=== PATIENT | female | born 1960 | race American Indian/Alaskan Native ===

== ENCOUNTER 2023-05-05 12:24 | Inpatient (IN) ==
[2023-05-05] MEDS ORDERED: fentaNYL 100 MCG/2 ML VIAL IV ONE ×2 (13:02→17:04)
[2023-05-05] MEDS ORDERED: KETAMINE 10 MG/ML ML IV ONE (13:27)
[2023-05-05] MEDS ORDERED: ONDANSETRON 4 MG/2 ML VIAL IV ONE (13:27)
[2023-05-05 13:50] LABS: Basophils # (Auto) 0.06 K/mcL (0.00-0.30); Basophils % (Auto) 0.9 % (0.0-2.0); Eosinophils % (Auto) 2.8 % (0.0-7.0); Hematocrit 39.7 % (34.1-44.9); Lymphocytes # (Auto) 1.99 K/mcL (1.50-4.80); Lymphocytes % (Auto) 28.3 % (15.5-49.0); Mean Cell Volume 88.6 fL (80.0-100.0); Mean Corpuscular HGB Conc 32.7 g/dL (31.0-36.0); Mean Platelet Volume 11.7 fL (8.8-12.5); Monocytes % (Auto) 7.1 % (1.0-12.0); Neutrophils % (Auto) 59.8 % (38.0-78.0); Platelet Count 266 K/mcL (140-440); RBC 4.48 M/mcL (3.59-5.38); Red Cell Distribution Width 13.7 % (11.5-14.5)
[2023-05-05 14:08] LABS: ALT/SGPT 59 U/L (<40); AST/SGOT 55 U/L (<32); Albumin 4.3 gm/dL (3.2-5.2); Albumin/Globulin Ratio 1.7 (1.0-2.3); Alkaline Phosphatase 74 U/L (39-117); Bilirubin,Total 0.3 mg/dL (0.1-1.0); Blood Urea Nitrogen 13 mg/dL (8-23); Calcium 9.5 mg/dL (8.6-10.4); Carbon Dioxide 20 mmol/L (22-30); Chloride 101 mmol/L (96-108); Globulin 2.5 gm/dL (2.2-3.7); Glomerular Filtration Rate 53; Glucose 371 mg/dL (70-105)
[2023-05-05 14:30] LABS: Prothrombin Time 13.4 sec (11.9-14.5)
[2023-05-05] MEDS ORDERED: ACETAMINOPHEN 1,000 MG/100 ML BAG IV ONE (15:04)
[2023-05-05] MEDS ORDERED: oxyCODONE IR 5 MG TABLET PO ONE ×2 (15:04→19:19)
[2023-05-05] MEDS ORDERED: CYCLOBENZAPRINE 10 MG TABLET PO ONE (15:51)
[2023-05-05 16:14] LABS: Appearance,Urine Clear (Clear); Bacteria,Urine Few /hpf (0); Bilirubin,Urine Negative (Negative); Color,Urine Yellow; Culture Indicated,Urine Yes; Glucose,Urine (UA) 500 mg/dL (Negative); Ketones,Urine Negative (Negative); Leukocyte Esterase,Urine Trace /uL (Negative); Nitrate,Urine Negative (Negative); Protein,Urine Negative (Negative); Specific Gravity,Urine 1.015 (1.000-1.035); Urine Blood Negative ery/mcL (Negative); Urine RBC 0 /hpf (0-3); Urine Squamous Epithelial Cell 3 /hpf (0-4); Urine WBC 4 /hpf (0-4); Urobilinogen,Urine Normal
[2023-05-05] MEDS ORDERED: POLYETHYLENE GLYCOL 3350 17 GM PACKET PO PRN (19:07)
[2023-05-05] MEDS ORDERED: DEXTROSE 50% 50 ML VIAL IV PRN (19:07)
[2023-05-05] MEDS ORDERED: DEXTROSE 31 GM ORAL.SUSP PO PRN (19:07)
[2023-05-05] MEDS ORDERED: NALOXONE HCL 0.4 MG/ML VIAL IV PRN (19:07)
[2023-05-05] MEDS ORDERED: ONDANSETRON 4 MG/2 ML VIAL IV PRN (19:07)
[2023-05-05] MEDS ORDERED: KETOROLAC 15 MG/ML VIAL ONE (19:19)
[2023-05-05] MEDS ORDERED: fentaNYL 100 MCG/2 ML VIAL ONE (19:19)
[2023-05-05] MEDS: fentaNYL 100 MCG/2 ML VIAL IV PRN ×2 (19:23→22:42)
[2023-05-05] MEDS: KETOROLAC 15 MG/ML VIAL IV PRN (19:26)
[2023-05-05] MEDS: oxyCODONE IR 5 MG TABLET PO PRN (19:26)
[2023-05-05] MEDS: ACETAMINOPHEN 1,000 MG/100 ML BAG IV SCH (20:00)
[2023-05-05] MEDS ORDERED: INSULIN GLARGINE, HUMAN 1 UNIT/0.01 ML SQ SCH (21:00)
[2023-05-05] MEDS: 0.9 % SODIUM CHLORIDE 10 ML SYRINGE IV SCH (21:19)
[2023-05-05] MEDS: SENNOSIDES 1 TABLET PO SCH (21:19)
[2023-05-05] MEDS: INSULIN LISPRO 1 UNIT/0.01 ML UNIT SQ SCH (21:20)
[2023-05-06] MEDS: oxyCODONE IR 5 MG TABLET PO PRN ×4 (01:02→18:43)
[2023-05-06] MEDS: fentaNYL 100 MCG/2 ML VIAL IV PRN ×5 (01:02→21:14)
[2023-05-06] MEDS: ACETAMINOPHEN 1,000 MG/100 ML BAG IV SCH ×3 (04:19→21:07)
[2023-05-06] MEDS: 0.9 % SODIUM CHLORIDE 10 ML SYRINGE IV SCH ×3 (04:21→21:09)
[2023-05-06] MEDS: KETOROLAC 15 MG/ML VIAL IV PRN (05:59)
[2023-05-06 06:47] LABS: Basophils # (Auto) 0.06 K/mcL (0.00-0.30); Basophils % (Auto) 0.7 % (0.0-2.0); Eosinophils # (Auto) 0.14 K/mcL (0.00-0.70); Eosinophils % (Auto) 1.7 % (0.0-7.0); Hematocrit 35.2 % (34.1-44.9); Hemoglobin 11.5 g/dL (11.2-15.7); Lymphocytes # (Auto) 1.91 K/mcL (1.50-4.80); Lymphocytes % (Auto) 23.4 % (15.5-49.0); Mean Cell Volume 90.5 fL (80.0-100.0); Mean Corpuscular HGB Conc 32.7 g/dL (31.0-36.0); Mean Platelet Volume 11.5 fL (8.8-12.5); Monocytes # (Auto) 0.66 K/mcL (0.10-0.90); Monocytes % (Auto) 8.1 % (1.0-12.0); Neutrophils % (Auto) 65.5 % (38.0-78.0); Platelet Count 253 K/mcL (140-440); RBC 3.89 M/mcL (3.59-5.38); Red Cell Distribution Width 14.1 % (11.5-14.5); WBC 8.2 K/mcL (4.5-11.0)
[2023-05-06 07:18] LABS: ALT/SGPT 46 U/L (<40); AST/SGOT 35 U/L (<32); Albumin 3.8 gm/dL (3.2-5.2); Albumin/Globulin Ratio 1.6 (1.0-2.3); Alkaline Phosphatase 59 U/L (39-117); Bilirubin,Direct < 0.2 mg/dL (0-0.3); Bilirubin,Total 0.4 mg/dL (0.1-1.0); Blood Urea Nitrogen 20 mg/dL (8-23); Calcium 9.3 mg/dL (8.6-10.4); Carbon Dioxide 21 mmol/L (22-30); Chloride 102 mmol/L (96-108); Globulin 2.4 gm/dL (2.2-3.7); Glomerular Filtration Rate 36; Glucose 272 mg/dL (70-105); Lactate Dehydrogenase 174 U/L (135-225); Phosphorous 4.3 mg/dL (2.5-4.5); Triglycerides 234 mg/dL (<150); Uric Acid 5.2 mg/dL (2.5-8.0)
[2023-05-06] MEDS ORDERED: 0.9 % SODIUM CHLORIDE 500 ML IV ONE (08:43)
[2023-05-06] MEDS: INSULIN LISPRO 1 UNIT/0.01 ML UNIT SQ SCH ×4 (08:45→21:05)
[2023-05-06] MEDS: ENOXAPARIN 40 MG/0.4 ML SYRINGE SQ SCH (08:46)
[2023-05-06] MEDS: SENNOSIDES 1 TABLET PO SCH ×2 (08:46→21:08)
[2023-05-06] MEDS ORDERED: 0.9 % SODIUM CHLORIDE 1,000 ML IV ONE (08:55)
[2023-05-06] MEDS: POLYETHYLENE GLYCOL 3350 17 GM PACKET PO SCH (09:23)
[2023-05-06 10:40] LABS: Estimated Average Glucose(eAG) 232 mg/dL; Hemoglobin A1C 9.7 % Hgb (4.0-6.0)
[2023-05-06] MEDS: BISOPROLOL 5 MG TABLET PO SCH (12:30)
[2023-05-06] MEDS ORDERED: INSULIN GLARGINE, HUMAN 1 UNIT/0.01 ML SQ SCH (21:00)
[2023-05-07] MEDS: oxyCODONE IR 5 MG TABLET PO PRN ×5 (03:18→22:02)
[2023-05-07] MEDS: fentaNYL 100 MCG/2 ML VIAL IV PRN ×4 (03:19→19:45)
[2023-05-07] MEDS: ACETAMINOPHEN 1,000 MG/100 ML BAG IV SCH (03:29)
[2023-05-07] MEDS: 0.9 % SODIUM CHLORIDE 10 ML SYRINGE IV SCH ×3 (04:54→22:01)
[2023-05-07] MEDS: INSULIN LISPRO 1 UNIT/0.01 ML UNIT SQ SCH ×6 (08:16→20:30)
[2023-05-07] MEDS: BISOPROLOL 5 MG TABLET PO SCH (08:19)
[2023-05-07] MEDS: SENNOSIDES 1 TABLET PO SCH ×2 (08:20→21:40)
[2023-05-07] MEDS: FENOFIBRATE 43 MG CAPSULE PO SCH (08:20)
[2023-05-07] MEDS: buPROPion 150 MG TAB.XL.24H PO SCH (08:21)
[2023-05-07] MEDS: PANTOPRAZOLE 40 MG TABLET PO SCH (08:21)
[2023-05-07] MEDS: LEVOTHYROXINE 100 MCG TABLET PO SCH (08:21)
[2023-05-07] MEDS: ENOXAPARIN 40 MG/0.4 ML SYRINGE SQ SCH (08:22)
[2023-05-07] MEDS: POLYETHYLENE GLYCOL 3350 17 GM PACKET PO SCH (08:22)
[2023-05-07] MEDS: ACETAMINOPHEN 500 MG TABLET PO SCH ×3 (08:55→20:29)
[2023-05-07 09:44] LABS: Basophils # (Auto) 0.04 K/mcL (0.00-0.30); Basophils % (Auto) 0.6 % (0.0-2.0); Eosinophils # (Auto) 0.18 K/mcL (0.00-0.70); Eosinophils % (Auto) 2.7 % (0.0-7.0); Hematocrit 33.7 % (34.1-44.9); Lymphocytes # (Auto) 1.38 K/mcL (1.50-4.80); Lymphocytes % (Auto) 20.9 % (15.5-49.0); Mean Cell Volume 90.3 fL (80.0-100.0); Mean Corpuscular HGB Conc 32.6 g/dL (31.0-36.0); Mean Platelet Volume 11.2 fL (8.8-12.5); Monocytes # (Auto) 0.49 K/mcL (0.10-0.90); Monocytes % (Auto) 7.4 % (1.0-12.0); Neutrophils % (Auto) 67.9 % (38.0-78.0); Platelet Count 175 K/mcL (140-440); RBC 3.73 M/mcL (3.59-5.38); Red Cell Distribution Width 13.8 % (11.5-14.5); WBC 6.6 K/mcL (4.5-11.0)
[2023-05-07 10:02] LABS: ALT/SGPT 28 U/L (<40); AST/SGOT 24 U/L (<32); Albumin 3.6 gm/dL (3.2-5.2); Albumin/Globulin Ratio 1.5 (1.0-2.3); Alkaline Phosphatase 64 U/L (39-117); Bilirubin,Direct 0.2 mg/dL (<0.3); Bilirubin,Total 0.4 mg/dL (0.1-1.0); Blood Urea Nitrogen 18 mg/dL (8-23); Calcium 8.8 mg/dL (8.6-10.4); Carbon Dioxide 19 mmol/L (22-30); Chloride 105 mmol/L (96-108); Globulin 2.4 gm/dL (2.2-3.7); Glomerular Filtration Rate 53; Glucose 256 mg/dL (70-105); Lactate Dehydrogenase 161 U/L (135-225); Phosphorous 2.4 mg/dL (2.5-4.5); Triglycerides 236 mg/dL (<150); Uric Acid 4.5 mg/dL (2.5-8.0)
[2023-05-07] MEDS: LOSARTAN 50 MG TABLET PO SCH (11:04)
[2023-05-07] MEDS ORDERED: INSULIN GLARGINE, HUMAN 1 UNIT/0.01 ML SQ SCH (21:00)
[2023-05-08] MEDS: oxyCODONE IR 5 MG TABLET PO PRN ×3 (04:53→17:30)
[2023-05-08] MEDS: fentaNYL 100 MCG/2 ML VIAL IV PRN ×5 (04:54→19:51)
[2023-05-08] MEDS: 0.9 % SODIUM CHLORIDE 10 ML SYRINGE IV SCH ×3 (04:54→21:53)
[2023-05-08] MEDS: INSULIN LISPRO 1 UNIT/0.01 ML UNIT SQ SCH ×7 (07:54→21:58)
[2023-05-08] MEDS: FENOFIBRATE 43 MG CAPSULE PO SCH (10:08)
[2023-05-08] MEDS: ACETAMINOPHEN 500 MG TABLET PO SCH ×3 (10:08→21:53)
[2023-05-08] MEDS: BISOPROLOL 5 MG TABLET PO SCH (10:08)
[2023-05-08] MEDS: LEVOTHYROXINE 100 MCG TABLET PO SCH (10:09)
[2023-05-08] MEDS: sitaGLIPtin 100 MG TABLET PO SCH (10:09)
[2023-05-08] MEDS: LOSARTAN 50 MG TABLET PO SCH (10:09)
[2023-05-08] MEDS: PANTOPRAZOLE 40 MG TABLET PO SCH (10:09)
[2023-05-08] MEDS: SENNOSIDES 1 TABLET PO SCH ×2 (10:09→21:52)
[2023-05-08] MEDS: POLYETHYLENE GLYCOL 3350 17 GM PACKET PO SCH (10:10)
[2023-05-08] MEDS: ENOXAPARIN 40 MG/0.4 ML SYRINGE SQ SCH (10:10)
[2023-05-08] MEDS: buPROPion 150 MG TAB.XL.24H PO SCH (10:10)
[2023-05-08] MEDS: INSULIN GLARGINE, HUMAN 1 UNIT/0.01 ML SQ SCH (21:58)
[2023-05-09] MEDS: fentaNYL 100 MCG/2 ML VIAL IV PRN ×6 (01:55→19:30)
[2023-05-09] MEDS: oxyCODONE IR 5 MG TABLET PO PRN ×4 (03:20→20:32)
[2023-05-09] MEDS: 0.9 % SODIUM CHLORIDE 10 ML SYRINGE IV SCH ×3 (05:20→20:34)
[2023-05-09] MEDS: INSULIN LISPRO 1 UNIT/0.01 ML UNIT SQ SCH ×7 (07:55→20:40)
[2023-05-09] MEDS: SENNOSIDES 1 TABLET PO SCH ×2 (08:05→20:41)
[2023-05-09] MEDS: LEVOTHYROXINE 100 MCG TABLET PO SCH (08:06)
[2023-05-09] MEDS: BISOPROLOL 5 MG TABLET PO SCH (08:06)
[2023-05-09] MEDS: buPROPion 150 MG TAB.XL.24H PO SCH (08:06)
[2023-05-09] MEDS: LOSARTAN 50 MG TABLET PO SCH (08:06)
[2023-05-09] MEDS: FENOFIBRATE 43 MG CAPSULE PO SCH (08:06)
[2023-05-09] MEDS: ACETAMINOPHEN 500 MG TABLET PO SCH ×3 (08:06→20:33)
[2023-05-09] MEDS: sitaGLIPtin 100 MG TABLET PO SCH (08:07)
[2023-05-09] MEDS: PANTOPRAZOLE 40 MG TABLET PO SCH (08:07)
[2023-05-09] MEDS: ENOXAPARIN 40 MG/0.4 ML SYRINGE SQ SCH (08:09)
[2023-05-09] MEDS: POLYETHYLENE GLYCOL 3350 17 GM PACKET PO SCH (08:10)
[2023-05-09] MEDS: INSULIN GLARGINE, HUMAN 1 UNIT/0.01 ML SQ SCH (20:40)
[2023-05-10] MEDS: fentaNYL 100 MCG/2 ML VIAL IV PRN ×5 (03:50→20:42)
[2023-05-10] MEDS: oxyCODONE IR 5 MG TABLET PO PRN ×3 (04:46→17:00)
[2023-05-10] MEDS: 0.9 % SODIUM CHLORIDE 10 ML SYRINGE IV SCH ×3 (05:27→20:43)
[2023-05-10] MEDS ORDERED: LOSARTAN 50 MG TABLET PO ONE (08:13)
[2023-05-10] MEDS: SENNOSIDES 1 TABLET PO SCH ×2 (08:39→20:43)
[2023-05-10] MEDS: LEVOTHYROXINE 100 MCG TABLET PO SCH (08:39)
[2023-05-10] MEDS: buPROPion 150 MG TAB.XL.24H PO SCH (08:39)
[2023-05-10] MEDS: PANTOPRAZOLE 40 MG TABLET PO SCH (08:39)
[2023-05-10] MEDS: INSULIN LISPRO 1 UNIT/0.01 ML UNIT SQ SCH ×8 (08:39→21:12)
[2023-05-10] MEDS: FENOFIBRATE 43 MG CAPSULE PO SCH (08:40)
[2023-05-10] MEDS: BISOPROLOL 5 MG TABLET PO SCH (08:40)
[2023-05-10] MEDS: ENOXAPARIN 40 MG/0.4 ML SYRINGE SQ SCH (08:40)
[2023-05-10] MEDS: ACETAMINOPHEN 500 MG TABLET PO SCH ×3 (08:40→20:52)
[2023-05-10] MEDS: POLYETHYLENE GLYCOL 3350 17 GM PACKET PO SCH (08:41)
[2023-05-10] MEDS: sitaGLIPtin 100 MG TABLET PO SCH (09:12)
[2023-05-10] MEDS: INSULIN GLARGINE, HUMAN 1 UNIT/0.01 ML SQ SCH (21:06)
[2023-05-11] MEDS: fentaNYL 100 MCG/2 ML VIAL IV PRN ×4 (00:10→23:23)
[2023-05-11] MEDS: 0.9 % SODIUM CHLORIDE 10 ML SYRINGE IV SCH ×5 (05:37→20:41)
[2023-05-11] MEDS ORDERED: SCOPOLAMINE 1 PATCH PATCH TOPICAL PRN (06:30)
[2023-05-11] MEDS ORDERED: IPRATROPIUM/ALBUTEROL 3 ML AMPUL.NEB NEB PRN ×2 (06:30→11:35)
[2023-05-11 06:38] LABS: Basophils # (Auto) 0.07 K/mcL (0.00-0.30); Eosinophils # (Auto) 0.26 K/mcL (0.00-0.70); Eosinophils % (Auto) 3.7 % (0.0-7.0); Hematocrit 32.9 % (34.1-44.9); Hemoglobin 10.6 g/dL (11.2-15.7); Lymphocytes # (Auto) 1.29 K/mcL (1.50-4.80); Lymphocytes % (Auto) 18.2 % (15.5-49.0); Mean Cell Volume 90.1 fL (80.0-100.0); Mean Corpuscular HGB Conc 32.2 g/dL (31.0-36.0); Monocytes # (Auto) 0.72 K/mcL (0.10-0.90); Monocytes % (Auto) 10.1 % (1.0-12.0); Neutrophils % (Auto) 65.7 % (38.0-78.0); Platelet Count 184 K/mcL (140-440); RBC 3.65 M/mcL (3.59-5.38); Red Cell Distribution Width 14.6 % (11.5-14.5); WBC 7.1 K/mcL (4.5-11.0)
[2023-05-11 06:52] LABS: ALT/SGPT 46 U/L (<40); AST/SGOT 41 U/L (<32); Albumin 3.5 gm/dL (3.2-5.2); Albumin/Globulin Ratio 1.2 (1.0-2.3); Alkaline Phosphatase 59 U/L (39-117); Bilirubin,Direct < 0.2 mg/dL (0-0.3); Bilirubin,Total 0.4 mg/dL (0.1-1.0); Blood Urea Nitrogen 19 mg/dL (8-23); Calcium 9.2 mg/dL (8.6-10.4); Carbon Dioxide 22 mmol/L (22-30); Chloride 103 mmol/L (96-108); Globulin 2.9 gm/dL (2.2-3.7); Glomerular Filtration Rate 67; Glucose 190 mg/dL (70-105); Lactate Dehydrogenase 177 U/L (135-225); Phosphorous 2.7 mg/dL (2.5-4.5); Triglycerides 174 mg/dL (<150); Uric Acid 3.1 mg/dL (2.5-8.0)
[2023-05-11] MEDS ORDERED: fentaNYL 100 MCG/2 ML VIAL ONE ×2 (06:55→10:06)
[2023-05-11] MEDS ORDERED: PROPOFOL 200 MG/20 ML VIAL IV ONE (06:55)
[2023-05-11] MEDS ORDERED: MIDAZOLAM 2 MG/2 ML VIAL ONE (06:56)
[2023-05-11] MEDS ORDERED: BUPIVACAINE PF 0.5% 10 ML VIAL ONE (07:12)
[2023-05-11] MEDS ORDERED: ceFAZolin 2 GM in DEXTROSE 5% IN WATER 50 ML IV SCH (07:15)
[2023-05-11] MEDS ORDERED: TRANEXAMIC ACID 1,000 MG/10 ML VIAL ONE (08:14)
[2023-05-11] MEDS ORDERED: PHENYLephrine 1 MG/10 ML SYRINGE (ANEST) ONE (08:55)
[2023-05-11] MEDS ORDERED: VANCOMYCIN 1 GM VIAL TOPICAL SCH (10:45)
[2023-05-11] MEDS ORDERED: ONDANSETRON 4 MG/2 ML VIAL ONE (10:57)
[2023-05-11] MEDS ORDERED: TRANEXAMIC ACID 1,000 MG/10 ML VIAL IV ONE (11:17)
[2023-05-11] MEDS ORDERED: BENZOCAINE/MENTHOL 1 LOZENGE PO PRN (11:17)
[2023-05-11] MEDS ORDERED: NALOXONE HCL 0.4 MG/ML VIAL IV PRN (11:35)
[2023-05-11] MEDS ORDERED: fentaNYL 100 MCG/2 ML VIAL IV PRN (11:35)
[2023-05-11] MEDS ORDERED: ONDANSETRON 4 MG/2 ML VIAL IV PRN (11:35)
[2023-05-11] MEDS ORDERED: FLUMAZENIL 0.1 MG/ML ML IV PRN (11:35)
[2023-05-11] MEDS ORDERED: LACTATED RINGERS 1,000 ML IV SCH (11:45)
[2023-05-11 12:03] LABS: Basophils # (Auto) 0.09 K/mcL (0.00-0.30); Basophils % (Auto) 0.7 % (0.0-2.0); Eosinophils # (Auto) 0.32 K/mcL (0.00-0.70); Eosinophils % (Auto) 2.5 % (0.0-7.0); Hematocrit 32.4 % (34.1-44.9); Hemoglobin 9.7 g/dL (11.2-15.7); Lymphocytes # (Auto) 2.49 K/mcL (1.50-4.80); Lymphocytes % (Auto) 19.1 % (15.5-49.0); Mean Cell Volume 98.5 fL (80.0-100.0); Mean Corpuscular HGB Conc 29.9 g/dL (31.0-36.0); Mean Platelet Volume 11.3 fL (8.8-12.5); Monocytes # (Auto) 1.21 K/mcL (0.10-0.90); Monocytes % (Auto) 9.3 % (1.0-12.0); Neutrophils % (Auto) 67.4 % (38.0-78.0); Platelet Count 227 K/mcL (140-440); RBC 3.29 M/mcL (3.59-5.38); Red Cell Distribution Width 14.8 % (11.5-14.5); WBC 13.1 K/mcL (4.5-11.0)
[2023-05-11] MEDS: INSULIN LISPRO 1 UNIT/0.01 ML UNIT SQ SCH ×7 (12:47→20:41)
[2023-05-11] MEDS: FENOFIBRATE 43 MG CAPSULE PO SCH (12:48)
[2023-05-11] MEDS: sitaGLIPtin 100 MG TABLET PO SCH (12:48)
[2023-05-11] MEDS: POLYETHYLENE GLYCOL 3350 17 GM PACKET PO SCH (12:49)
[2023-05-11] MEDS: PANTOPRAZOLE 40 MG TABLET PO SCH (12:49)
[2023-05-11] MEDS: LEVOTHYROXINE 100 MCG TABLET PO SCH (12:49)
[2023-05-11] MEDS: SENNOSIDES 1 TABLET PO SCH ×2 (12:49→20:41)
[2023-05-11] MEDS: buPROPion 150 MG TAB.XL.24H PO SCH ×2 (12:50→16:16)
[2023-05-11] MEDS: BISOPROLOL 5 MG TABLET PO SCH ×2 (12:50→16:16)
[2023-05-11] MEDS: LACTATED RINGERS 1,000 ML IV SCH ×2 (13:43→23:23)
[2023-05-11] MEDS: ACETAMINOPHEN 500 MG TABLET PO SCH ×3 (13:45→22:16)
[2023-05-11] MEDS: ceFAZolin 1 GM VIAL IV SCH ×2 (16:00→23:23)
[2023-05-11] MEDS: INSULIN GLARGINE, HUMAN 1 UNIT/0.01 ML SQ SCH (20:41)
[2023-05-11] MEDS: oxyCODONE IR 5 MG TABLET PO PRN (20:42)
[2023-05-11] MEDS: METHOCARBAMOL 500 MG TABLET PO PRN (20:42)
[2023-05-12] MEDS: oxyCODONE IR 5 MG TABLET PO PRN ×2 (01:58→07:00)
[2023-05-12] MEDS: fentaNYL 100 MCG/2 ML VIAL IV PRN ×3 (03:06→09:38)
[2023-05-12] MEDS: 0.9 % SODIUM CHLORIDE 10 ML SYRINGE IV SCH ×6 (04:33→21:35)
[2023-05-12] MEDS: METHOCARBAMOL 500 MG TABLET PO PRN ×3 (04:33→20:36)
[2023-05-12] MEDS: ACETAMINOPHEN 500 MG TABLET PO SCH ×2 (05:12→16:18)
[2023-05-12 07:16] LABS: Hemoglobin 7.6 g/dL (11.2-15.7)
[2023-05-12] MEDS ORDERED: 0.9 % SODIUM CHLORIDE 250 ML IV SCH (08:45)
[2023-05-12] MEDS: INSULIN LISPRO 1 UNIT/0.01 ML UNIT SQ SCH ×7 (09:15→21:34)
[2023-05-12] MEDS: BISOPROLOL 5 MG TABLET PO SCH (09:22)
[2023-05-12] MEDS: PANTOPRAZOLE 40 MG TABLET PO SCH (09:23)
[2023-05-12] MEDS: sitaGLIPtin 100 MG TABLET PO SCH (09:23)
[2023-05-12] MEDS: POLYETHYLENE GLYCOL 3350 17 GM PACKET PO SCH (09:23)
[2023-05-12] MEDS: SENNOSIDES 1 TABLET PO SCH ×2 (09:23→20:38)
[2023-05-12] MEDS: buPROPion 150 MG TAB.XL.24H PO SCH (09:23)
[2023-05-12] MEDS: FENOFIBRATE 43 MG CAPSULE PO SCH (09:23)
[2023-05-12] MEDS: LEVOTHYROXINE 100 MCG TABLET PO SCH (09:23)
[2023-05-12] MEDS: oxyCODONE/APAP 10/325MG TABLET PO PRN ×3 (12:28→20:35)
[2023-05-12] MEDS: LACTATED RINGERS 1,000 ML IV SCH (16:24)
[2023-05-12] MEDS: INSULIN GLARGINE, HUMAN 1 UNIT/0.01 ML SQ SCH (21:34)
[2023-05-13] MEDS: oxyCODONE/APAP 10/325MG TABLET PO PRN ×5 (00:41→20:40)
[2023-05-13] MEDS: METHOCARBAMOL 500 MG TABLET PO PRN ×2 (04:38→20:40)
[2023-05-13] MEDS: LACTATED RINGERS 1,000 ML IV SCH (04:42)
[2023-05-13] MEDS: 0.9 % SODIUM CHLORIDE 10 ML SYRINGE IV SCH ×6 (04:58→20:46)
[2023-05-13 06:58] LABS: Hematocrit 27.3 % (34.1-44.9); Hemoglobin 8.8 g/dL (11.2-15.7)
[2023-05-13] MEDS: INSULIN LISPRO 1 UNIT/0.01 ML UNIT SQ SCH ×7 (07:37→20:42)
[2023-05-13] MEDS: POLYETHYLENE GLYCOL 3350 17 GM PACKET PO SCH (08:55)
[2023-05-13] MEDS: SENNOSIDES 1 TABLET PO SCH ×2 (08:55→20:44)
[2023-05-13] MEDS: sitaGLIPtin 100 MG TABLET PO SCH (08:55)
[2023-05-13] MEDS: PANTOPRAZOLE 40 MG TABLET PO SCH (08:56)
[2023-05-13] MEDS: BISOPROLOL 5 MG TABLET PO SCH (08:56)
[2023-05-13] MEDS: FENOFIBRATE 43 MG CAPSULE PO SCH (08:56)
[2023-05-13] MEDS: ENOXAPARIN 40 MG/0.4 ML SYRINGE SQ SCH (08:57)
[2023-05-13] MEDS: LEVOTHYROXINE 100 MCG TABLET PO SCH (08:57)
[2023-05-13] MEDS: buPROPion 150 MG TAB.XL.24H PO SCH (08:57)
[2023-05-13] MEDS: fentaNYL 100 MCG/2 ML VIAL IV PRN (17:15)
[2023-05-13] MEDS: INSULIN GLARGINE, HUMAN 1 UNIT/0.01 ML SQ SCH (20:42)
[2023-05-14] MEDS: oxyCODONE/APAP 10/325MG TABLET PO PRN ×5 (00:46→23:59)
[2023-05-14] MEDS: 0.9 % SODIUM CHLORIDE 10 ML SYRINGE IV SCH ×6 (04:56→21:06)
[2023-05-14] MEDS: INSULIN LISPRO 1 UNIT/0.01 ML UNIT SQ SCH ×7 (06:51→21:05)
[2023-05-14] MEDS: sitaGLIPtin 100 MG TABLET PO SCH (08:09)
[2023-05-14] MEDS: BISOPROLOL 5 MG TABLET PO SCH (08:09)
[2023-05-14] MEDS: LOSARTAN 50 MG TABLET PO SCH (08:09)
[2023-05-14] MEDS: SENNOSIDES 1 TABLET PO SCH ×2 (08:09→20:58)
[2023-05-14] MEDS: FENOFIBRATE 43 MG CAPSULE PO SCH (08:09)
[2023-05-14] MEDS: buPROPion 150 MG TAB.XL.24H PO SCH (08:09)
[2023-05-14] MEDS: POLYETHYLENE GLYCOL 3350 17 GM PACKET PO SCH (08:10)
[2023-05-14] MEDS: ENOXAPARIN 40 MG/0.4 ML SYRINGE SQ SCH (08:10)
[2023-05-14] MEDS: PANTOPRAZOLE 40 MG TABLET PO SCH (08:10)
[2023-05-14] MEDS: LEVOTHYROXINE 100 MCG TABLET PO SCH (08:10)
[2023-05-14] MEDS: METHOCARBAMOL 500 MG TABLET PO PRN (20:58)
[2023-05-14] MEDS: INSULIN GLARGINE, HUMAN 1 UNIT/0.01 ML SQ SCH (21:05)
[2023-05-15] MEDS: 0.9 % SODIUM CHLORIDE 10 ML SYRINGE IV SCH ×2 (04:45→04:49)
[2023-05-15] MEDS: BISOPROLOL 5 MG TABLET PO SCH (08:18)
[2023-05-15] MEDS: buPROPion 150 MG TAB.XL.24H PO SCH (08:19)
[2023-05-15] MEDS: PANTOPRAZOLE 40 MG TABLET PO SCH (08:19)
[2023-05-15] MEDS: SENNOSIDES 1 TABLET PO SCH (08:20)
[2023-05-15] MEDS: LEVOTHYROXINE 100 MCG TABLET PO SCH (08:20)
[2023-05-15] MEDS: sitaGLIPtin 100 MG TABLET PO SCH (08:20)
[2023-05-15] MEDS: LOSARTAN 50 MG TABLET PO SCH (08:21)
[2023-05-15] MEDS: FENOFIBRATE 43 MG CAPSULE PO SCH (08:21)
[2023-05-15] MEDS: oxyCODONE/APAP 10/325MG TABLET PO PRN (08:21)
[2023-05-15] MEDS: INSULIN LISPRO 1 UNIT/0.01 ML UNIT SQ SCH ×4 (08:23→11:47)
[2023-05-15] MEDS: ENOXAPARIN 40 MG/0.4 ML SYRINGE SQ SCH (08:24)
[2023-05-15] MEDS: POLYETHYLENE GLYCOL 3350 17 GM PACKET PO SCH ×2 (08:24→09:37)
[2023-05-15] MEDS ORDERED: valACYclovir 500 MG TABLET PO SCH (12:00)
== END 2023-05-15 13:20 | DRG 493 ==
LOC: ED 12:24 → MEDSUR 19:00
PROVIDERS: ADMIT Internal Medicine; ATTEND Internal Medicine